=== PATIENT | female | born 1990 | race African-American/Black ===

== ENCOUNTER 2018-08-20 12:33 | Emergency (ER) | payer MEDICAID ==
[~2018-08-20] VITALS: Ht 160 cm; Wt 77.1 kg
[2018-08-20 12:52] VITALS: BP 121/69
[2018-08-20] MEDS ORDERED: NAPROXEN 500 MG TABLET PO STA (13:21)
[2018-08-20] MEDS ORDERED: CHLO15MO2 PO (13:37)
[2018-08-20] MEDS ORDERED: NAPR-514 PO (13:37)
[2018-08-20] MEDS ORDERED: PENI500T PO (13:37)
--- NOTE | 2018-08-20 13:37 | PHYS DOC ---
Past Medical History Past Medical History: Asthma Past Surgical History: No Surgical History Alcohol Use: None Drug Use: None Adult General Chief Complaint Chief Complaint: Toothache HPI HPI Patient is a 27 year old left sided dental pain with several broken upper and lower teeth for the last 4 days. Pt reports tactile fever but has not measured her temperature. She denies any rash, nausea, vomiting, cough, or diarrhea. Currently, her pain is an 8/10. Review of Systems Review of Systems Constitutional: Denies fever or chills [] HENT: See HPI Respiratory: Denies cough or shortness of breath [] GI: Denies abdominal pain, nausea, vomiting, or diarrhea [] Integument: Denies rash or skin lesions [] Neurologic: Denies headache, focal weakness or sensory changes [] Complete systems were reviewed and found to be within normal limits, except as documented in this note. Current Medications Current Medications Current Medications Medications (Trade) Dose Ordered Sig/Michelle Start Time Stop Time Status Last Admin Dose Admin Naproxen (Naprosyn) 500 mg 1X STAT 08/20/18 13:21 08/20/18 13:27 DC 08/20/18 13:27 500 MG Allergies Allergies Allergies Coded Allergies Type Severity Reaction Last Updated Verified latex Allergy Intermediate 08/20/18 Yes Physical Exam Physical Exam Constitutional: Well developed, well nourished, no acute distress, non-toxic appearance. [] HENT: Normocephalic, atraumatic, bilateral external ears normal, bilateral TMs normal, diffuse dental decay with mild gingival edema and erythema noted in LUQ and LLQ of mouth, oropharynx moist, no oral exudates, nose normal. [] Eyes: conjunctiva normal, no discharge. [] Neck: Normal range of motion, no tenderness, supple, no stridor. [] Cardiovascular:Heart rate regular rhythm, no murmur [] Lungs & Thorax: Bilateral breath sounds clear to auscultation [] Skin: Warm, dry, no erythema, no rash. [] Neurologic: Alert and oriented X 3, normal motor function, normal sensory function, no focal deficits noted. [] Psychologic: Affect normal, judgement normal, mood normal. [] Current Patient Data Vital Signs Vital Signs Date Time Temp Pulse Resp B/P (MAP) Pulse Ox O2 Delivery O2 Flow Rate FiO2 08/20/18 12:52 99.1 71 14 121/69 (86) 100 Room Air 99.1 EKG EKG [] Radiology/Procedures Radiology/Procedures [] Course & Med Decision Making Course & Med Decision Making Pertinent Labs and Imaging studies reviewed. (See chart for details) [] Staff Physician Addendum: I was working in the ER during the course of this patient's visit. I was available for consultation as needed, but I was not directly involved in the care of this patient. Dragon Disclaimer Dragon Disclaimer This electronic medical record was generated, in whole or in part, using a voice recognition dictation system. Departure Departure Impression: Primary Impression: Dentalgia Additional Impression: Infected dental caries Disposition: HOME, SELF-CARE Condition: STABLE Referrals: NO PCP (PCP) Patient Instructions: Dental Caries Additional Instructions: Fill the prescriptions and use as directed. Use the dental list provided to follow-up with a dentist for further treatment of your dental caries. Return to the ER symptoms worsen. Scripts Penicillin V Potassium (PENICILLIN V POTASSIUM) 500 Mg Tablet 500 MG PO QID for 10 Days, #40 TAB 0 Refills Prov: JACLYN TAVERAS APRN 08/20/18 Chlorhexidine Gluconate (PERIDEX) 15 Ml Mouthwash 15 ML PO BID for 10 Days, #946 ML 0 Refills Prov: JACLYN TAVERAS APRN 08/20/18 Naproxen (NAPROXEN) 500 Mg Tablet 1 TAB PO BID PRN for PAIN for 10 Days, #20 TAB 0 Refills Prov: JACLYN TAVERAS APRN 08/20/18 Problem Qualifiers JACLYN TAVERAS APRN Aug 20, 2018 13:37 GRISELDA CHACKO MD Aug 22, 2018 08:02
== END 2018-08-20 13:50 | disposition home or self-care (01) ==
LOC: ER 12:33
DX: K04.7 Periapical abscess without sinus (principal); K08.89 Other specified disorders of teeth and supporting structures; J45.909 Unspecified asthma, uncomplicated; Z91.040 Latex allergy status
CPT/HCPCS: 99283